=== PATIENT | female | born 1945 | race Caucasian/White ===

== ENCOUNTER 2016-12-09 16:16 | Inpatient (IN) | payer OTHER, MEDICARE ==
[~2016-12-09 16:16] MED LIST: ABILIFY2 M1 PO; AMBIEN10 M1 PO; AMBIEN10 MG PO; AMBIEN5 M1 PO; AUGMENTIN 875-1 EAC2 PO; AUGMENTIN500 MG PO; BACITRACIN OINTM1 GM EXT; BACTRIM DS TAB1 EAC2 PO; BACTRIM DS1 TAB PO; BACTRIM1 TAB PO; BONIVA150 MG PO; BONIVA2.5 MG PO; BUPROPION SR100 MG; CALCIUM 600 +1 EA17 PO; CENTRUM COMPLE1 EAC1 PO; COLACE-T100 MG PO; COLACE100 M1 PO; CRANBERRY 400 M1 TAB PO; CRANBERRY400 M2 PO; CRESTOR10 MG/TAB PO; CRESTOR20 M1 PO; CRESTOR20 MG; CULTURELLE1 EAC1 PO; DIAZEPAM5 M2 PO; EFFEXOR XR75 M1 PO; EFFEXOR XR75 MG; EFFEXOR75 MG PO; FISH OIL 1,4001 EACH PO; GABAPENTIN300 M1 PO; GLIPIZIDE ER10 M1 PO; GLIPIZIDE XL10 MG PO; GLUCOPHAGE1000 MG; GLUCOPHAGE1000 MG PO; H PO; HUMALOG100 U/ML SQ; HYDROCODON-ACE1 EA16 PO; LANTUS100 U/ML SC; LANTUS100 UNITS/ SC; LASIX40 M1 PO; LEVAQUIN250 M3 PO; LEVAQUIN500 MG PO; LEVAQUIN750 M1 PO; LEVEMIR100 UNITS/ SC; LEVOTHYROXINE100 MC1 PO; LISINOPRIL10 M1 PO; LOPERAMIDE1 MG/5 M3 PO; LOPERAMIDE2 M3 PO; LOVASTATIN20 M2 PO; LYRICA100 MG; LYRICA100 MG PO; LYRICA200 MG PO; MACROBID 100 M100 MG PO; METFORMIN HCL1000 M2 PO; METFORMIN HCL1000 MG PO; METFORMIN HCL500; METFORMIN HCL500 M4 PO; METFORMIN HCL500 MG PO; METFORMIN HCL500 PO; MORPHINE SULFAT1 PO; MORPHINE SULFAT15 M PO; MULTIVITAMINS1 EAC5 PO; NEURONTIN300 M1 PO; NEURONTIN300 MG; NEURONTIN300 MG PO; NIASPAN1000 MG PO; NIASPAN500 MG PO; NIASPAN750 MG; NITROFURANTOIN100 MG PO; NITROFURANTOIN50 M1 PO; NORCO 10-325 T1 EACH PO; NORCO 5-325 TA1 EACH PO; NORCO 5/3251 TA1 PO; NORVASC5 MG PO; NOVOLOG FL100 UNIT/2 SC; NOVOLOG100 UNITS/ SC; PERCOCET 5-3251 EACH PO; PERCOLONE5 MG PO; PRESERVISION SO1 CAP PO; RITALIN5 MG; SANTYL30 GM TP; SULFAMYLON SOL250 M1 EXT; SYNTHROID50 MC1 PO; TYLENOL #31 TA1 PO; TYLENOL W/CODEI1 TAB; TYLENOL325 MG PO; VALIUM5 M1 PO; VALIUM5 MG PO; VENLAFAXINE HCL75 M3 PO; VITAMIN C500 M3 PO; VITAMIN D31000 UNI4 PO; XANAX0.25 MG PO; XARELTO10 MG PO; ZANAFLEX4 M; ZANAFLEX4 M PO; ZANAFLEX4 M3 PO
[2016-12-09] MEDS ORDERED: POTASSIUM CHLO20 ME3 PO (16:30)
[2016-12-09] MEDS ORDERED: BACTRIM DS TAB1 EAC2 PO (16:32)
[2016-12-09] MEDS ORDERED: FEOSOL325 M1 PO (16:36)
[2016-12-09] MEDS ORDERED: ATORVASTATIN CA20 M1 PO (16:37)
[2016-12-09] MEDS ORDERED: NEURONTIN300 M1 PO (16:48)
[2016-12-09] MEDS ORDERED: ENEMEEZ283 MG/5 M PR (17:07)
[2016-12-09] MEDS ORDERED: LOVENOX40 MG/0.1 SC (17:07)
[2016-12-09] MEDS ORDERED: GLUCAGEN1 MG/1 ML IM (17:08)
[2016-12-09] MEDS ORDERED: GLUCOSE4 GM CH (17:08)
[2016-12-09] MEDS ORDERED: TYLENOL325 M2 PO (17:09)
[2016-12-09] MEDS ORDERED: MILK OF MAGNESIA PO (17:09)
[2016-12-09] MEDS ORDERED: COLACE100 M1 PO (17:09)
[2016-12-09] MEDS ORDERED: NORCO 5-325 TA1 EACH PO (17:10)
[2016-12-09] MEDS ORDERED: VALIUM5 M1 PO (17:10)
[2016-12-09] MEDS ORDERED: BISCOLAX10 MG PR (17:11)
[2016-12-09 17:57] LABS: BASO % 0.6 % (0-2); EOS % 4.1 % (0-7); EOSINOPHIL ABSOLUTE COUNT 0.2 tho/cmm (0.0-0.7); HCT-HEMATOCRIT 29.3 % (34.0-49.0); IMMATURE GRANULOCYTES ABSOLUTE 0.02 tho/cmm (0-0.03); IMMATURE GRANULOCYTES PERCENT 0.4 % (0-0.3); LYMPH % 21.3 % (20-45); MCH (MEAN CORPUSCULAR HGB) 24.7 pg (28.0-32.0); MCHC MEAN CORPUSCULAR HGB CONC 30.7 % (32.0-36.0); MCV (MEAN CELL VOLUME) 80.3 fl (82.0-96.0); MEAN PLATELET VOLUME 7.8 cmc (9.4-12.4); MONO % 7.6 % (0-12); MONOCYTE ABSOLUTE COUNT 0.4 tho/cmm (0.0-1.2); NEUTROPHIL ABSOLUTE COUNT 3.2 tho/cmm (1.6-8.0); NEUTROPHIL-AUTOMATED 3.2 tho/cmm (1.6-8.0); PLATELET COUNT 248 tho/cmm (150-450); RED BLOOD COUNT 3.65 mil/cmm (4.00-5.20); WHITE BLOOD COUNT 4.9 tho/cmm (4.0-10.0)
[2016-12-09 18:14] LABS: ANION GAP 13 mmol/L (0-20); BLOOD UREA NITROGEN 31 mg/dl (6-24); CALCIUM 9.8 mg/dl (8.5-10.5); CARBON DIOXIDE-VENOUS 30 mmol/L (22-32); CHLORIDE 98 mmol/l (96-110); CREATININE 1.18 mg/dl (0.50-1.10); GLUCOSE 137 mg/dL (70-110); POTASSIUM 4.2 mmol/L (3.7-5.1); SODIUM 137 mmol/L (135-145); eGFR VALUE FOR BLACK 54 mL/Min
[2016-12-09 19:09] LABS: URINE BILIRUBIN NEGATIVE (NEG); URINE BLOOD SMALL (NEG); URINE GLUCOSE (UA) NEGATIVE (NEG); URINE KETONE NEGATIVE (NEG); URINE LEUKOCYTE ESTERASE POSITIVE (NEG); URINE NITRITE NEGATIVE (NEG); URINE PROTEIN NEGATIVE (NEG)
[2016-12-09 19:11] LABS: URINE APPEARANCE CLEAR; URINE COLOR YELLOW
[2016-12-09 19:17] LABS: URINE BACTERIA 1+
[2016-12-09 19:18] LABS: URINE OTHER 1+ YEAST; URINE WBC 15-30 /[HPF] (0-5)
[2016-12-10 06:15] LABS: BASO % 0.6 % (0-2); EOS % 3.5 % (0-7); EOSINOPHIL ABSOLUTE COUNT 0.2 tho/cmm (0.0-0.7); HGB-HEMOGLOBIN 8.7 gm/dl (12.0-15.5); IMMATURE GRANULOCYTES ABSOLUTE 0.02 tho/cmm (0-0.03); IMMATURE GRANULOCYTES PERCENT 0.4 % (0-0.3); LYMPH % 19.3 % (20-45); LYMPH ABSOLUTE COUNT 0.9 tho/cmm (0.8-4.5); MCH (MEAN CORPUSCULAR HGB) 24.9 pg (28.0-32.0); MCHC MEAN CORPUSCULAR HGB CONC 31.1 % (32.0-36.0); MEAN PLATELET VOLUME 7.8 cmc (9.4-12.4); MONO % 7.4 % (0-12); MONOCYTE ABSOLUTE COUNT 0.4 tho/cmm (0.0-1.2); NEUTROPHIL ABSOLUTE COUNT 3.3 tho/cmm (1.6-8.0); NEUTROPHIL-AUTOMATED 3.3 tho/cmm (1.6-8.0); NEUTROPHILS % 68.8 % (40-80); PLATELET COUNT 244 tho/cmm (150-450); WHITE BLOOD COUNT 4.9 tho/cmm (4.0-10.0)
[2016-12-10 06:39] LABS: ALBUMIN 2.5 g/dl (3.5-5.0); ALT/SGPT 29 U/L (12-78); ANION GAP 13 mmol/L (0-20); AST/SGOT 25 U/L (10-40); BLOOD UREA NITROGEN 24 mg/dl (6-24); CARBON DIOXIDE-VENOUS 25 mmol/L (22-32); CHLORIDE 105 mmol/l (96-110); CREATININE 1.07 mg/dl (0.50-1.10); GLUCOSE 117 mg/dL (70-110); POTASSIUM 4.3 mmol/L (3.7-5.1); SODIUM 139 mmol/L (135-145); eGFR VALUE FOR BLACK 61 mL/Min
[2016-12-10 06:49] LABS: PROTHROMBIN TIME 11.9 SECONDS (9.0-13.6)
[2016-12-10 06:50] LABS: ALB/GLOB RATIO 0.5 (0.8-2.0); ALKALINE PHOSPHATASE 192 U/L (33-138); BILIRUBIN,TOTAL 0.2 mg/dl (0-1.5); TSH-THYROID STIMULATING HORM. 1.63 uIU/ml (0.40-3.80)
[2016-12-10 07:35] LABS: PROCALCITONIN 0.17 ng/ml (0.05-0.09)
[2016-12-25] MEDS ORDERED: GLUCOPHAGE1000 M1 PO (09:03)
[2017-02-24] MEDS ORDERED: ROSUVASTATIN CA20 MG PO (10:50)
[2017-02-24] MEDS ORDERED: FLEET ENEMA133 ML PR (10:53)
[2017-02-24] MEDS ORDERED: VALIUM5 M1 PO (10:53)
[2017-02-24] MEDS ORDERED: PRESERVISION A1 EAC4 PO (10:54)
[2017-02-24] MEDS ORDERED: FISH OIL 1,0001 EAC6 PO (10:56)
[2017-02-24] MEDS ORDERED: HYDROCODON-ACE1 EA16 PO (10:57)
== END 2016-12-10 15:15 | DRG 698 ==
LOC: EDMED 16:16 → EMR2 23:28 → 5WE 23:39
PROVIDERS: Emergency Medicine; ADMIT Internal Medicine
DX: T83.511A Infection and inflammatory reaction due to indwelling urethral catheter, initial encounter (principal); L89.153 Pressure ulcer of sacral region, stage 3; N17.9 Acute kidney failure, unspecified; L89.212 Pressure ulcer of right hip, stage 2; C85.90 Non-Hodgkin lymphoma, unspecified, unspecified site; G82.20 Paraplegia, unspecified; L89.220 Pressure ulcer of left hip, unstageable; B96.1 Klebsiella pneumoniae [K. pneumoniae] as the cause of diseases classified elsewhere; D50.9 Iron deficiency anemia, unspecified; E03.9 Hypothyroidism, unspecified; E11.9 Type 2 diabetes mellitus without complications; E78.5 Hyperlipidemia, unspecified; G89.29 Other chronic pain; I49.9 Cardiac arrhythmia, unspecified; I10 Essential (primary) hypertension; F32.9 Major depressive disorder, single episode, unspecified; Z96.0 Presence of urogenital implants; Z99.3 Dependence on wheelchair; Z79.4 Long term (current) use of insulin; Y84.6 Urinary catheterization as the cause of abnormal reaction of the patient, or of later complication, without mention of misadventure at the time of the procedure; Z79.01 Long term (current) use of anticoagulants
CPT/HCPCS: J0696; J1650; J1815; J2543; J7030

== ENCOUNTER 2017-02-25 10:03 | Inpatient (IN) | payer MEDICARE, OTHER ==
[~2017-02-25 10:03] MED LIST changes: +ATORVASTATIN CA20 M1 PO; +BISCOLAX10 MG PR; +ENEMEEZ283 MG/5 M PR; +FEOSOL325 M1 PO; +FISH OIL 1,0001 EAC6 PO; +FLEET ENEMA133 ML PR; +GLUCAGEN1 MG/1 ML IM; +GLUCOPHAGE1000 M1 PO; +GLUCOSE4 GM CH; +LOVENOX40 MG/0.1 SC; +MILK OF MAGNESIA PO; +POTASSIUM CHLO20 ME3 PO; +PRESERVISION A1 EAC4 PO; +ROSUVASTATIN CA20 MG PO; +TYLENOL325 M2 PO
[2017-02-25 18:54] LABS: PROTHROMBIN TIME 11.6 SECONDS (9.0-13.6)
[2017-02-25 19:08] LABS: CHOLESTEROL 88 mg/dl (120-200); HDL CHOLESTEROL 14 mg/dl (40-60); VLDL 92 mg/dl (0-30)
[2017-02-25 19:11] LABS: TSH-THYROID STIMULATING HORM. 0.98 uIU/ml (0.40-3.80)
[2017-02-25 19:15] LABS: TRIGLYCERIDES 462 mg/dl (<149)
[2017-02-26 06:14] LABS: BASO % 0.4 % (0-2); EOS % 2.4 % (0-7); EOSINOPHIL ABSOLUTE COUNT 0.1 tho/cmm (0.0-0.7); HCT-HEMATOCRIT 29.8 % (34.0-49.0); HGB-HEMOGLOBIN 8.9 gm/dl (12.0-15.5); IMMATURE GRANULOCYTES ABSOLUTE 0.02 tho/cmm (0-0.03); IMMATURE GRANULOCYTES PERCENT 0.4 % (0-0.3); LYMPH % 23.3 % (20-45); LYMPH ABSOLUTE COUNT 1.3 tho/cmm (0.8-4.5); MCH (MEAN CORPUSCULAR HGB) 23.5 pg (28.0-32.0); MCHC MEAN CORPUSCULAR HGB CONC 29.9 % (32.0-36.0); MCV (MEAN CELL VOLUME) 78.8 fl (82.0-96.0); MEAN PLATELET VOLUME 7.7 cmc (9.4-12.4); MONOCYTE ABSOLUTE COUNT 0.3 tho/cmm (0.0-1.2); NEUTROPHIL ABSOLUTE COUNT 3.7 tho/cmm (1.6-8.0); NEUTROPHIL-AUTOMATED 3.7 tho/cmm (1.6-8.0); NEUTROPHILS % 68.5 % (40-80); PLATELET COUNT 171 tho/cmm (150-450); RED BLOOD COUNT 3.78 mil/cmm (4.00-5.20); RED CELL DISTRIBUTION WIDTH 16.5 % (12.4-16.4); WHITE BLOOD COUNT 5.4 tho/cmm (4.0-10.0)
[2017-02-26 06:25] LABS: BLOOD UREA NITROGEN 19 mg/dl (6-24); CALCIUM 8.9 mg/dl (8.5-10.5); CARBON DIOXIDE-VENOUS 30 mmol/L (22-32); CREATININE 0.74 mg/dl (0.50-1.10); GLUCOSE 106 mg/dL (70-110); eGFR VALUE FOR BLACK >90 mL/Min
[2017-02-26 06:50] LABS: ANION GAP 10 mmol/L (0-20); CHLORIDE 106 mmol/l (96-110); POTASSIUM 4.1 mmol/L (3.7-5.1); SODIUM 142 mmol/L (135-145)
[2017-03-02 17:12] LABS: ANION GAP 14 mmol/L (0-20); BLOOD UREA NITROGEN 25 mg/dl (6-24); CALCIUM 9.2 mg/dl (8.5-10.5); CARBON DIOXIDE-VENOUS 30 mmol/L (22-32); CHLORIDE 100 mmol/l (96-110); CREATININE 0.97 mg/dl (0.50-1.10); GLUCOSE 174 mg/dL (70-110); POTASSIUM 3.6 mmol/L (3.7-5.1); SODIUM 140 mmol/L (135-145); eGFR VALUE FOR BLACK 68 mL/Min
[2017-03-04 05:59] LABS: BASO % 0.3 % (0-2); EOS % 2.8 % (0-7); EOSINOPHIL ABSOLUTE COUNT 0.2 tho/cmm (0.0-0.7); HCT-HEMATOCRIT 30.1 % (34.0-49.0); HGB-HEMOGLOBIN 8.8 gm/dl (12.0-15.5); IMMATURE GRANULOCYTES ABSOLUTE 0.01 tho/cmm (0-0.03); IMMATURE GRANULOCYTES PERCENT 0.2 % (0-0.3); LYMPH % 19.1 % (20-45); LYMPH ABSOLUTE COUNT 1.2 tho/cmm (0.8-4.5); MCH (MEAN CORPUSCULAR HGB) 23.5 pg (28.0-32.0); MCHC MEAN CORPUSCULAR HGB CONC 29.2 % (32.0-36.0); MCV (MEAN CELL VOLUME) 80.5 fl (82.0-96.0); MEAN PLATELET VOLUME 7.6 cmc (9.4-12.4); MONO % 4.3 % (0-12); MONOCYTE ABSOLUTE COUNT 0.3 tho/cmm (0.0-1.2); NEUTROPHIL ABSOLUTE COUNT 4.7 tho/cmm (1.6-8.0); NEUTROPHIL-AUTOMATED 4.7 tho/cmm (1.6-8.0); NEUTROPHILS % 73.3 % (40-80); PLATELET COUNT 209 tho/cmm (150-450); RED BLOOD COUNT 3.74 mil/cmm (4.00-5.20); RED CELL DISTRIBUTION WIDTH 17.1 % (12.4-16.4); WHITE BLOOD COUNT 6.4 tho/cmm (4.0-10.0)
[2017-03-04 06:17] LABS: ANION GAP 13 mmol/L (0-20); BLOOD UREA NITROGEN 24 mg/dl (6-24); CALCIUM 9.2 mg/dl (8.5-10.5); CARBON DIOXIDE-VENOUS 28 mmol/L (22-32); CHLORIDE 103 mmol/l (96-110); CREATININE 1.07 mg/dl (0.50-1.10); GLUCOSE 176 mg/dL (70-110); POTASSIUM 4.2 mmol/L (3.7-5.1); SODIUM 140 mmol/L (135-145); eGFR VALUE FOR BLACK 60 mL/Min
[2017-03-05 11:35] LABS: BASO % 0.4 % (0-2); EOS % 2.5 % (0-7); EOSINOPHIL ABSOLUTE COUNT 0.1 tho/cmm (0.0-0.7); HCT-HEMATOCRIT 27.3 % (34.0-49.0); HGB-HEMOGLOBIN 7.9 gm/dl (12.0-15.5); IMMATURE GRANULOCYTES ABSOLUTE 0.02 tho/cmm (0-0.03); IMMATURE GRANULOCYTES PERCENT 0.4 % (0-0.3); LYMPH % 17.5 % (20-45); MCH (MEAN CORPUSCULAR HGB) 23.7 pg (28.0-32.0); MCV (MEAN CELL VOLUME) 81.7 fl (82.0-96.0); MEAN PLATELET VOLUME 7.6 cmc (9.4-12.4); MONO % 5.6 % (0-12); MONOCYTE ABSOLUTE COUNT 0.3 tho/cmm (0.0-1.2); NEUTROPHIL ABSOLUTE COUNT 4.2 tho/cmm (1.6-8.0); NEUTROPHIL-AUTOMATED 4.2 tho/cmm (1.6-8.0); NEUTROPHILS % 73.6 % (40-80); PLATELET COUNT 187 tho/cmm (150-450); RED BLOOD COUNT 3.34 mil/cmm (4.00-5.20); RED CELL DISTRIBUTION WIDTH 16.9 % (12.4-16.4); WHITE BLOOD COUNT 5.7 tho/cmm (4.0-10.0)
[2017-03-05 11:37] LABS: MCHC MEAN CORPUSCULAR HGB CONC 28.9 % (32.0-36.0)
[2017-03-07 05:48] LABS: BASO % 0.6 % (0-2); BASO ABSOLUTE COUNT 0.1 tho/cmm (0.0-0.2); EOS % 2.5 % (0-7); EOSINOPHIL ABSOLUTE COUNT 0.2 tho/cmm (0.0-0.7); HCT-HEMATOCRIT 29.7 % (34.0-49.0); HGB-HEMOGLOBIN 9.1 gm/dl (12.0-15.5); IMMATURE GRANULOCYTES ABSOLUTE 0.09 tho/cmm (0-0.03); IMMATURE GRANULOCYTES PERCENT 1.1 % (0-0.3); LYMPH % 21.4 % (20-45); LYMPH ABSOLUTE COUNT 1.7 tho/cmm (0.8-4.5); MCH (MEAN CORPUSCULAR HGB) 24.3 pg (28.0-32.0); MCHC MEAN CORPUSCULAR HGB CONC 30.6 % (32.0-36.0); MCV (MEAN CELL VOLUME) 79.4 fl (82.0-96.0); MEAN PLATELET VOLUME 7.7 cmc (9.4-12.4); MONO % 5.9 % (0-12); MONOCYTE ABSOLUTE COUNT 0.5 tho/cmm (0.0-1.2); NEUTROPHIL ABSOLUTE COUNT 5.6 tho/cmm (1.6-8.0); NEUTROPHIL-AUTOMATED 5.6 tho/cmm (1.6-8.0); NEUTROPHILS % 68.5 % (40-80); PLATELET COUNT 215 tho/cmm (150-450); RED BLOOD COUNT 3.74 mil/cmm (4.00-5.20); RED CELL DISTRIBUTION WIDTH 17.2 % (12.4-16.4); WHITE BLOOD COUNT 8.1 tho/cmm (4.0-10.0)
[2017-03-07 06:03] LABS: ANION GAP 14 mmol/L (0-20); BLOOD UREA NITROGEN 18 mg/dl (6-24); CALCIUM 8.6 mg/dl (8.5-10.5); CARBON DIOXIDE-VENOUS 27 mmol/L (22-32); CHLORIDE 102 mmol/l (96-110); CREATININE 0.72 mg/dl (0.50-1.10); GLUCOSE 87 mg/dL (70-110); POTASSIUM 4.4 mmol/L (3.7-5.1); SODIUM 139 mmol/L (135-145); eGFR VALUE FOR BLACK >90 mL/Min
[2017-03-08] MEDS ORDERED: AMBIEN5 M1 PO (12:33)
[2017-03-08] MEDS ORDERED: GLUCAGON HCL1 MG SC (12:35)
== END 2017-03-08 13:30 | DRG 981 ==
LOC: SHSB 10:03 → PACU 13:48 → BURN 15:32
PROVIDERS: Family Medicine; Internal Medicine; Nurse Practitioner; Physician Assistant; ADMIT Surgery
PROC: 0QB10ZZ Excision of Sacrum, Open Approach (ICD-10-PCS; principal; 2017-02-25)
DX: L89.314 Pressure ulcer of right buttock, stage 4 (principal); L89.213 Pressure ulcer of right hip, stage 3; L89.523 Pressure ulcer of left ankle, stage 3
CPT/HCPCS: J0171; J1335; J1580; J1650; J1815; J2270; J2405; J3010; J3370; J7040; J7050; P9016